=== PATIENT | female | born 1945 | race Hispanic/Latino ===

== ENCOUNTER → 2024-10-23 | Outpatient (CLI) | payer OTHER ==
--- NOTE | 2024-10-23 17:01 | HMCIMG ---
LUMBAR SPINE 2-3VWS HISTORY: Low back pain COMPARISON: None FINDINGS: Images were obtained. There is straightening of normal lordotic curvature which may be related to muscle spasm or positioning. No loss of vertebral height is seen. No fracture or dislocation is seen. Degenerative changes are seen. There are degenerative changes with spondylosis. Dextroscoliosis. Large amount of fecal material is seen. IMPRESSION: 1. No fracture is seen. DJD with scoliosis.
== END | disposition home or self-care (01) ==
LOC: RAH 12:02
PROVIDERS: ATTEND Internal Medicine
DX: M47.816 Spondylosis without myelopathy or radiculopathy, lumbar region (principal); M54.50 Low back pain, unspecified; M41.86 Other forms of scoliosis, lumbar region
CPT/HCPCS: 72100